=== PATIENT | female | born 1950 | race Caucasian/White ===

== ENCOUNTER 2017-11-16 19:50 | Inpatient (IN) | payer MEDICARE, MEDICAID ==
[~2017-11-16] VITALS: Ht 157.5 cm; Wt 69.2 kg
[~2017-11-16 19:50] MED LIST: ALPR-624 PO; ASPI-611 PO; LOSA100T13 PO; MORP30TA60 PO; NITR0.4T SL; NORCO10T PO; SIMV20TA5 PO
[2017-11-16 20:21] LABS: BASOPHILS % (AUTO) 0.2 % (0-1); EOSINOPHILS # (AUTO) 0.1 X10'3 (0-0.9); EOSINOPHILS % (AUTO) 0.6 % (0-6); HEMATOCRIT 49.6 % (35.0-45.0); LYMPHOCYTES # (AUTO) 1.9 X10'3 (1.1-4.8); LYMPHOCYTES % (AUTO) 12.8 % (21-51); MEAN CORPUSCULAR HEMOGLOBIN 31.4 PG (27.0-31.0); MEAN CORPUSCULAR HGB CONC 34.2 % (33.0-36.5); MEAN CORPUSCULAR VOLUME 92.1 FL (78-98); MONOCYTES # (AUTO) 0.8 X10'3 (0-0.9); MONOCYTES % (AUTO) 5.6 % (2-12); NEUTROPHILS # (AUTO) 11.8 X10'3 (1.8-7.7); NEUTROPHILS % (AUTO) 80.8 % (42-75); PLATELET COUNT 281 X10'3 (140-440); RED BLOOD COUNT 5.39 X10'6 (4.20-5.60); RED CELL DISTRIBUTION WIDTH 13.2 % (11.5-14.5); WHITE BLOOD COUNT 14.7 X10'3 (4.5-11.0)
[2017-11-16] MEDS ORDERED: normal saline 1000ml 1,000 ML IV ONE ×2 (20:30)
[2017-11-16 20:32] LABS: INR 1.1 INR; PARTIAL THROMBOPLASTIN TIME 26 SECONDS (22-32); PROTHROMBIN TIME 11.5 SECONDS (9.0-12.0)
[2017-11-16 20:36] LABS: ALANINE AMINOTRANSFERASE 34 U/L (12-78); ALBUMIN 3.6 G/DL (3.4-5.0); ALKALINE PHOSPHATASE 60 IU/L (46-116); ANION GAP 11 (8-16); ASPARTATE AMINO TRANSFERASE 30 U/L (10-37); BILIRUBIN,TOTAL 1.4 MG/DL (0.1-1.0); BLOOD UREA NITROGEN 30 MG/DL (7-18); BUN/CREATININE RATIO 31.6 (6.6-38.0); CALCIUM 8.8 MG/DL (8.5-10.1); CHLORIDE 105 MMOL/L (99-107); CREATININE 0.95 MG/DL (0.40-0.90); GLUCOSE 123 MG/DL (70-104); POTASSIUM 3.1 MMOL/L (3.5-5.1); SODIUM 143 MMOL/L (135-145); TOTAL CARBON DIOXIDE 27.2 MMOL/L (24-32); TOTAL PROTEIN 7.1 G/DL (6.4-8.2); eGFR 59 ML/MIN
[2017-11-16] MEDS ORDERED: HYDROmorphone inj. 0.5 MG/0.5 ML DISP.SYRIN IV PRN ×2 (22:25)
[2017-11-16] MEDS ORDERED: bisacodyl 10mg suppository rectal RC PRN (22:25)
[2017-11-16] MEDS ORDERED: acetaminophen 325mg tablet PO PRN (22:25)
[2017-11-16] MEDS ORDERED: metoclopramide 5 mg/ml inj IV PRN (22:25)
[2017-11-16] MEDS ORDERED: morphine 4 MG/ML inj SYRINge IV PRN (22:25)
[2017-11-16] MEDS ORDERED: potassium Cl 40MEQ/NS 500ml 500 ML IV PRN ×2 (22:25)
[2017-11-16] MEDS: K and/or MAG REPLACEMENT MC SCH (22:25)
[2017-11-16] MEDS ORDERED: HYDROcodone/acetaminophen 5mg/325mg tablet PO PRN (22:25)
[2017-11-16] MEDS ORDERED: acetaminophen 650mg rectal suppository RC PRN (22:25)
[2017-11-16] MEDS ORDERED: mag hydrox/Alum hydrox/simeth 30ml oral suspension PO PRN (22:25)
[2017-11-16] MEDS ORDERED: diphenhydrAMINE 25mg capsule PO PRN (22:25)
[2017-11-16] MEDS ORDERED: diphenhydrAMINE 50 mg/ml inj IV PRN (22:25)
[2017-11-16] MEDS ORDERED: magnesium hydroxide 30ml (MOM) UD suspension PO PRN (22:25)
[2017-11-16] MEDS ORDERED: potassium Cl 20 mEq SR tablet PO PRN (22:25)
[2017-11-16] MEDS ORDERED: metoprolol tartrate 1mg/ml inj IV PRN (22:40)
[2017-11-16] MEDS ORDERED: regadenoson 0.4mg/5ml syringe IV ONE (22:40)
[2017-11-16] MEDS ORDERED: CAFFEINE CITRATE 60 MG/3 ML injection vial IV PRN (22:40)
[2017-11-16] MEDS ORDERED: nitroGLYCERIN 0.4mg SUBLingual tab SL PRN (22:40)
[2017-11-16] MEDS: potassium Cl 20mEq in NS 1,000 ML IV SCH (23:07)
[2017-11-16] MEDS: pantoprazole 40 MG vial IV SCH (23:25)
[2017-11-16] MEDS: enoxaparin 60mg/0.6ml syringe SUBCUT SCH (23:29)
[2017-11-16 23:35] LABS: HEMOGLOBIN A1C 5.4 % (4.5-6.2)
[2017-11-16 23:41] LABS: MAGNESIUM 1.9 MG/DL (1.5-2.4)
[2017-11-17] VITALS (13 sets, daily range): BP systolic 125–160; BP diastolic 63–100
[2017-11-17] MEDS: potassium Cl 20 mEq SR tablet PO PRN ×4 (00:06→20:12)
[2017-11-17] MEDS: temazepam 15mg capsule PO PRN ×2 (00:06→20:15)
[2017-11-17 00:36] LABS: CLARITY,URINE Clear (Clear); COLOR,URINE Yellow (Yellow); GLUCOSE, URINE Negative (Neg); KETONES,URINE Trace mg/dl (Neg); LEUKOCYTE ESTERASE ,URINE Small (Neg); NITRITES, URINE Negative (Neg); OCCULT BLOOD,URINE Small (Neg); PH,URINE 5.5 (4.8-8.0); PROTEIN,URINE 300 mg/dl (Neg)
[2017-11-17 00:37] LABS: UA COLLECTION TYPE CLN CATCH MIDSTREAM
[2017-11-17 00:43] LABS: BACTERIA,URINE 2+ /HPF (Neg); MUCUS STRANDS FEW /LPF (Neg); SQUAMOUS EPITHELIAL CELL,UR FEW /LPF (FEW)
[2017-11-17 02:30] LABS: ALANINE AMINOTRANSFERASE 33 U/L (12-78); ALBUMIN 3.2 G/DL (3.4-5.0); ALKALINE PHOSPHATASE 55 IU/L (46-116); ANION GAP 5 (8-16); ASPARTATE AMINO TRANSFERASE 30 U/L (10-37); BILIRUBIN,TOTAL 0.9 MG/DL (0.1-1.0); BLOOD UREA NITROGEN 23 MG/DL (7-18); BUN/CREATININE RATIO 25.6 (6.6-38.0); CHLORIDE 109 MMOL/L (99-107); GLUCOSE 110 MG/DL (70-104); POTASSIUM 3.2 MMOL/L (3.5-5.1); SODIUM 144 MMOL/L (135-145); TOTAL CARBON DIOXIDE 29.8 MMOL/L (24-32); TOTAL PROTEIN 6.4 G/DL (6.4-8.2); eGFR 63 ML/MIN
[2017-11-17 02:33] LABS: BASOPHILS % (AUTO) 0.2 % (0-1); CHOL/HDL RATIO 3.5 (0.00-4.99); CHOLESTEROL 197 MG/DL (0-200); EOSINOPHILS # (AUTO) 0.1 X10'3 (0-0.9); EOSINOPHILS % (AUTO) 0.5 % (0-6); HDL CHOLESTEROL 56 MG/DL (35-60); HEMATOCRIT 45.9 % (35.0-45.0); HEMOGLOBIN 15.4 g/dl (12.0-16.0); LDL CHOLESTEROL 117 MG/DL (50-100); LYMPHOCYTES # (AUTO) 1.9 X10'3 (1.1-4.8); LYMPHOCYTES % (AUTO) 16.4 % (21-51); MEAN CORPUSCULAR HEMOGLOBIN 31.4 PG (27.0-31.0); MEAN CORPUSCULAR HGB CONC 33.4 % (33.0-36.5); MEAN CORPUSCULAR VOLUME 93.8 FL (78-98); MEAN PLATELET VOLUME 8.4 FL (7.4-10.4); MONOCYTES # (AUTO) 0.8 X10'3 (0-0.9); MONOCYTES % (AUTO) 6.7 % (2-12); NEUTROPHILS # (AUTO) 8.8 X10'3 (1.8-7.7); NEUTROPHILS % (AUTO) 76.2 % (42-75); PLATELET COUNT 244 X10'3 (140-440); RED BLOOD COUNT 4.89 X10'6 (4.20-5.60); TRIGLYCERIDES 145 MG/DL (20-135); WHITE BLOOD COUNT 11.6 X10'3 (4.5-11.0)
[2017-11-17] MEDS: nitroGLYCERIN 0.4mg/hour patch TD SCH (08:00)
[2017-11-17] MEDS: K and/or MAG REPLACEMENT MC SCH (08:00)
[2017-11-17] MEDS: enoxaparin 60mg/0.6ml syringe SUBCUT SCH ×2 (08:00→20:23)
[2017-11-17] MEDS: nitrofuran/nitrofuran macrocrysal 100 MG capsule PO SCH ×2 (08:42→17:19)
[2017-11-17] MEDS: pantoprazole 40 MG vial IV SCH (08:42)
[2017-11-17] MEDS: docusate sod 100mg capsule PO SCH ×2 (08:43→20:12)
[2017-11-17] MEDS: carVEDilol 3.125mg tablet PO SCH ×2 (08:43→20:12)
[2017-11-17] MEDS: aspirin 325mg tablet PO SCH (08:46)
[2017-11-17] MEDS: potassium Cl 20mEq in NS 1,000 ML IV SCH ×2 (08:52→18:24)
[2017-11-17] MEDS ORDERED: CAFFEINE CITRATE 60 MG/3 ML injection vial IV ONE (11:45)
[2017-11-17] MEDS ORDERED: regadenoson 0.4mg/5ml syringe IV ONE (11:46)
[2017-11-17] MEDS ORDERED: ondansetron/PF 4mg/2ml inj ONE (12:01)
[2017-11-17] MEDS: ondansetron/PF 4mg/2ml inj IV PRN (12:03)
[2017-11-17] MEDS: morphine 4 MG/ML inj SYRINge IV PRN (16:03)
[2017-11-17] MEDS: HYDROcodone/acetaminophen 10/325mg tab PO PRN ×2 (17:19→20:15)
[2017-11-18] MEDS: HYDROcodone/acetaminophen 10/325mg tab PO PRN ×4 (00:16→20:09)
[2017-11-18 03:00] VITALS: BP 152/82
[2017-11-18] MEDS: potassium Cl 20mEq in NS 1,000 ML IV SCH ×2 (05:06→14:32)
[2017-11-18 05:32] LABS: BASOPHILS % (AUTO) 0.3 % (0-1); EOSINOPHILS # (AUTO) 0.1 X10'3 (0-0.9); EOSINOPHILS % (AUTO) 0.6 % (0-6); HEMATOCRIT 39.4 % (35.0-45.0); HEMOGLOBIN 13.2 g/dl (12.0-16.0); LYMPHOCYTES # (AUTO) 2.8 X10'3 (1.1-4.8); LYMPHOCYTES % (AUTO) 29.7 % (21-51); MEAN CORPUSCULAR HEMOGLOBIN 31.1 PG (27.0-31.0); MEAN CORPUSCULAR HGB CONC 33.5 % (33.0-36.5); MEAN CORPUSCULAR VOLUME 92.8 FL (78-98); MEAN PLATELET VOLUME 8.1 FL (7.4-10.4); MONOCYTES # (AUTO) 0.7 X10'3 (0-0.9); MONOCYTES % (AUTO) 7.6 % (2-12); NEUTROPHILS # (AUTO) 5.7 X10'3 (1.8-7.7); NEUTROPHILS % (AUTO) 61.8 % (42-75); PLATELET COUNT 204 X10'3 (140-440); RED BLOOD COUNT 4.25 X10'6 (4.20-5.60); RED CELL DISTRIBUTION WIDTH 12.4 % (11.5-14.5); WHITE BLOOD COUNT 9.3 X10'3 (4.5-11.0)
[2017-11-18 05:48] LABS: ALANINE AMINOTRANSFERASE 29 U/L (12-78); ALBUMIN 2.8 G/DL (3.4-5.0); ALKALINE PHOSPHATASE 41 IU/L (46-116); ANION GAP 5 (8-16); ASPARTATE AMINO TRANSFERASE 21 U/L (10-37); BILIRUBIN,TOTAL 1.1 MG/DL (0.1-1.0); BLOOD UREA NITROGEN 13 MG/DL (7-18); BUN/CREATININE RATIO 15.9 (6.6-38.0); CHLORIDE 106 MMOL/L (99-107); CREATININE 0.82 MG/DL (0.40-0.90); GLUCOSE 106 MG/DL (70-104); SODIUM 140 MMOL/L (135-145); TOTAL CARBON DIOXIDE 29.3 MMOL/L (24-32); TOTAL PROTEIN 5.7 G/DL (6.4-8.2); eGFR 70 ML/MIN
[2017-11-18] MEDS: morphine 4 MG/ML inj SYRINge IV PRN ×2 (06:48→11:09)
[2017-11-18] MEDS: ondansetron/PF 4mg/2ml inj IV PRN ×2 (06:49→20:03)
[2017-11-18 07:00] VITALS: BP 147/83
[2017-11-18] MEDS ORDERED: pantoprazole 40mg Tablet.DR PO SCH (07:30)
[2017-11-18] MEDS: nitroGLYCERIN 0.4mg/hour patch TD SCH (08:00)
[2017-11-18] MEDS: K and/or MAG REPLACEMENT MC SCH (08:00)
[2017-11-18] MEDS: nitrofuran/nitrofuran macrocrysal 100 MG capsule PO SCH (08:38)
[2017-11-18] MEDS: carVEDilol 3.125mg tablet PO SCH (08:38)
[2017-11-18] MEDS: aspirin 325mg tablet PO SCH (08:38)
[2017-11-18] MEDS: docusate sod 100mg capsule PO SCH (08:38)
[2017-11-18] MEDS: enoxaparin 60mg/0.6ml syringe SUBCUT SCH (08:40)
[2017-11-18 11:00] VITALS: BP 132/79
[2017-11-18 15:00] VITALS: BP 127/72
[2017-11-18] MEDS ORDERED: COR3.125T PO (17:00)
[2017-11-18 19:00] VITALS: BP 138/89
== END 2017-11-18 20:21 | disposition home or self-care (01) | DRG 682 ==
LOC: ER 19:51 → ED HOLD 22:24 → PCU 3S 23:49
PROVIDERS: ADMIT Family Medicine; ATTEND Family Medicine
PROC: 4A02XM4 Measurement of Cardiac Total Activity, External Approach (ICD-10-PCS; principal; 2017-11-17)
PROC: 3E073KZ Introduction of Other Diagnostic Substance into Coronary Artery, Percutaneous Approach (ICD-10-PCS; 2017-11-17)
DX: N17.9 Acute kidney failure, unspecified (principal); R65.11 Systemic inflammatory response syndrome (SIRS) of non-infectious origin with acute organ dysfunction; E87.6 Hypokalemia; E86.0 Dehydration; K52.9 Noninfective gastroenteritis and colitis, unspecified; E78.5 Hyperlipidemia, unspecified; G89.4 Chronic pain syndrome; M19.90 Unspecified osteoarthritis, unspecified site; M54.9 Dorsalgia, unspecified; I10 Essential (primary) hypertension; Z90.710 Acquired absence of both cervix and uterus; Z79.899 Other long term (current) drug therapy; Z79.82 Long term (current) use of aspirin
CPT/HCPCS: 36415; 78452; 80053; 80061; 81001; 83036; 83605; 83735; 83880; 84100; 84145; 84484; 85025; 85610; 85730; 87040; 87070; 87088; 93005; 93017; 93306; 96360; 99285; A9500; C9113; J1650; J2270; J2405; J2765; J2785; J7030

== ENCOUNTER 2019-01-10 05:39 | Day surgery (SDC) | payer MEDICARE ==
[2019-01-02 10:42] LABS: BASOPHILS % (AUTO) 0.7 % (0-1); EOSINOPHILS # (AUTO) 0.1 X10'3 (0-0.9); EOSINOPHILS % (AUTO) 1.4 % (0-6); LYMPHOCYTES # (AUTO) 2.1 X10'3 (1.1-4.8); LYMPHOCYTES % (AUTO) 31.4 % (21-51); MEAN CORPUSCULAR HEMOGLOBIN 31.7 PG (27.0-31.0); MEAN CORPUSCULAR HGB CONC 33.8 g/dL (33.0-36.5); MEAN PLATELET VOLUME 7.5 FL (7.4-10.4); MONOCYTES # (AUTO) 0.4 X10'3 (0-0.9); MONOCYTES % (AUTO) 5.8 % (2-12); NEUTROPHILS % (AUTO) 60.7 % (42-75); PRE OP HEMATOCRIT 40.8 % (35.0-45.0); PRE OP HEMOGLOBIN 13.8 g/dL (12.0-16.0); PRE OP PLATELET COUNT 293 X10'3 (140-440); RED BLOOD COUNT 4.35 X10'6 (4.20-5.60); RED CELL DISTRIBUTION WIDTH 12.5 % (11.5-14.5)
[2019-01-02 10:48] LABS: PRE OP PROTIME 10.5 SECONDS (9.0-12.0)
[2019-01-02 10:49] LABS: ALBUMIN 3.4 G/DL (3.4-5.0); ALKALINE PHOSPHATASE 51 IU/L (46-116); BLOOD UREA NITROGEN 19 MG/DL (7-18); BUN/CREATININE RATIO 22.6 (6.6-38.0); CALCIUM 8.5 MG/DL (8.5-10.1); CHLORIDE 105 MMOL/L (99-107); CREATININE 0.84 MG/DL (0.40-0.90); PRE OP ALT 21 U/L (30-65); PRE OP ANION GAP 6 (8-16); PRE OP AST 17 U/L (10-37); PRE OP BILIRUB, TOTAL 0.4 MG/DL (0.0-1.0); PRE OP GLUCOSE 89 MG/DL (70-104); PRE OP SODIUM 141 MMOL/L (135-145); TOTAL CARBON DIOXIDE 30.2 MMOL/L (24-32); TOTAL PROTEIN 6.7 G/DL (6.4-8.2); eGFR 68 ML/MIN
[2019-01-02 10:50] LABS: PRE OP POTASSIUM 4.3 MMOL/L (3.4-5.1)
[~2019-01-10] VITALS: Ht 162.6 cm; Wt 77.0 kg
[2019-01-10] VITALS (17 sets, daily range): BP systolic 86–124; BP diastolic 31–77
[~2019-01-10 05:39] MED LIST changes: +ANTI1CAP5 PO; -ASPI-611 PO; -SIMV20TA5 PO; +cefazolin/dext.iso 2gm/100 ML IV ONE; +famotidine 20mg tablet PO ONE; +vancomycin inj 1,500 MG in normal saline 300ml IV soln IV ONE
[2019-01-10] MEDS ORDERED: tobramycin sulfate 1.2gm vial IJ ONE (05:40)
[2019-01-10] MEDS ORDERED: LIDOcaine 1% (10mg/ml) 2ml vial ONE (05:53)
[2019-01-10] MEDS: ringers solution, lacted 1,000 ML IV SCH ×2 (06:23→19:57)
[2019-01-10] MEDS ORDERED: BUPIVAcaine/PF 2.5 mg/ml (0.25%) 30ml vial ONE (07:02)
[2019-01-10] MEDS ORDERED: fentaNYL/PF 50MCG/1 ML 2ML syringe ONE (07:18)
[2019-01-10] MEDS ORDERED: midazolam 2 mg/2 ml injection ONE (07:18)
[2019-01-10] MEDS ORDERED: propofol inj 20 ML IV ONE (07:19)
[2019-01-10] MEDS ORDERED: ondansetron/PF 4mg/2ml inj ONE (07:19)
[2019-01-10] MEDS ORDERED: LIDOcaine 2% (20mg/ml) 5ml vial ONE (07:19)
[2019-01-10] MEDS ORDERED: dexamethasone sod phosphate 4mg/ml inj. ONE (07:19)
[2019-01-10] MEDS ORDERED: sevoflurane 250ml liquid IH ONE (07:20)
[2019-01-10] MEDS ORDERED: ringers solution, lacted 1,000 ML IV SCH (08:12)
[2019-01-10] MEDS ORDERED: ondansetron/PF 4mg/2ml inj IV PRN ×2 (08:15→11:00)
[2019-01-10] MEDS ORDERED: hydrALAZINE 20mg/ml inj. IV PRN (08:15)
[2019-01-10] MEDS ORDERED: enalaprilat dihydrate 2.5mg/2ml vial IV PRN (08:15)
[2019-01-10] MEDS ORDERED: HYDROmorphone inj. 0.5 MG/0.5 ML DISP.SYRIN IV PRN ×2 (08:15)
[2019-01-10] MEDS ORDERED: morphine 4 MG/ML inj SYRINge IV PRN ×2 (08:15)
[2019-01-10] MEDS ORDERED: ePHEDrine 50MG/ML INJ. ONE (08:25)
[2019-01-10] MEDS ORDERED: acetaminophen 1,000mg/100ml IV 100 ML IV ONE (09:49)
[2019-01-10] MEDS ORDERED: morphine 10mg/ml inj. ONE (10:10)
--- NOTE | 2019-01-10 10:37 | NUR ---
Received from OR via [facility]THO BED WITH [facility] , accompanied by Anesthesiologist JOAQUINA and report given by Anesthesiolgist. PATIENT WITH 5/10 SHOULDER AND KNEE PAIN. STATES THAT SHE CAN TOLERATE A 6. PATIENT HAS CHRONIC PAIN. SCDS DONNED. 18G PIV IN LEFT UE RUNNING LR AT 100. MOVES FINGERS AND HAS +CAP REFILL AND RADIAL PULSE. VSS AT THIS TIME. SHOULDER WRAP AND ICE PACK PRESENT. Addendum: 01/10/19 at 1046 by Aurelio Rome RN, RN Amended: Links added.
[2019-01-10] MEDS ORDERED: nitroGLYCERIN 0.4mg SUBLingual tab SL PRN (10:55)
[2019-01-10] MEDS ORDERED: diphenhydrAMINE 25mg capsule PO PRN ×2 (11:00)
[2019-01-10] MEDS ORDERED: bisacodyl 10mg suppository rectal RC PRN (11:00)
[2019-01-10] MEDS ORDERED: magnesium hydroxide 30ml (MOM) UD suspension PO PRN (11:00)
[2019-01-10] MEDS ORDERED: acetaminophen 325mg tablet PO PRN (11:00)
[2019-01-10] MEDS ORDERED: ESTR1TAB28 PO (11:12)
--- NOTE | 2019-01-10 11:37 | NUR ---
ALL CRITERIA FOR TRANSFER TO THE FLOOR HAS BEEN ACHIEVED. VSS. BED LOW, CALL LIGHT AND VS. SET IN PLACE. RN PRESENT TO ACCEPT CARE. PATIENT RESTING COMFORTABLY IN BED. BELONGINGS SENT WITH PATIENT. DRESSINGS AVELINO. RN PRESENT TO ACCEPT CARE OF THIS PATIENT. DRESSINGS AVELINO. Addendum: 01/10/19 at 1146 by Aurelio Rome RN, RN Amended: Links added.
--- NOTE | 2019-01-10 12:00 | NUR ---
I have received patient report from Aurelio EDWARDS
[2019-01-10] MEDS: morphine ER 30mg tablet PO SCH ×2 (12:45→21:24)
[2019-01-10] MEDS: potassium Cl 20mEq in NS 1,000 ML IV SCH (12:45)
[2019-01-10] MEDS: HYDROcodone/acetaminophen 10/325mg tab PO SCH ×2 (13:55→20:05)
[2019-01-10] MEDS: ketorolac tromethamine 15mg/ml inj. IV SCH ×2 (13:55→20:04)
[2019-01-10] MEDS: ceFAZolin 1GM/D5W- ADD-VANTAGE 50 ML IV SCH (16:30)
[2019-01-10] MEDS: ALPRAZolam 0.5mg tablet PO PRN (18:05)
--- NOTE | 2019-01-10 18:43 | NUR ---
I have given patient report Valery EDWARDS
[2019-01-10] MEDS ORDERED: vancomycin/NS 1 GM ADD-VANTAGE 250 ML IV SCH (20:00)
[2019-01-10] MEDS ORDERED: sennosides 8.6mg tablet PO SCH (21:00)
[2019-01-11] MEDS: ceFAZolin 1GM/D5W- ADD-VANTAGE 50 ML IV SCH (00:53)
[2019-01-11] MEDS: potassium Cl 20mEq in NS 1,000 ML IV SCH (00:54)
[2019-01-11 02:00] VITALS: BP 104/57
[2019-01-11] MEDS: HYDROcodone/acetaminophen 10/325mg tab PO SCH ×2 (02:19→07:58)
[2019-01-11] MEDS: ketorolac tromethamine 15mg/ml inj. IV SCH ×2 (02:20→07:58)
[2019-01-11 06:10] VITALS: BP 115/55
--- NOTE | 2019-01-11 06:28 | NUR ---
Problems reprioritized. Patient report given, questions answered & plan of care reviewed with Dinora EDWARDS. Addendum: 01/11/19 at 0629 by Valery Saldana RN Amended: Links added.
--- NOTE | 2019-01-11 06:31 | NUR ---
I have received patient report from Valery EDWARDS
[2019-01-11] MEDS: morphine ER 30mg tablet PO SCH ×2 (07:58→13:26)
[2019-01-11] MEDS ORDERED: losartan 25mg tablet PO SCH (08:00)
[2019-01-11] MEDS ORDERED: beta-carotene(A) w/C & E + minerals tab PO SCH (08:00)
[2019-01-11] MEDS ORDERED: estradiol 1mg tablet PO SCH (08:00)
[2019-01-11 10:00] VITALS: BP 163/63
[2019-01-11] MEDS ORDERED: HYDROcodone/acetaminophen 10/325mg tab PO PRN (11:25)
[2019-01-11] MEDS: HYDROcodone/acetaminophen 10/325mg tab PO PRN ×2 (11:35→15:17)
[2019-01-11] MEDS: ALPRAZolam 0.5mg tablet PO PRN (13:26)
[2019-01-11 14:00] VITALS: BP 147/77
== END 2019-01-11 17:27 | disposition home or self-care (01) ==
LOC: PAS 05:39 → ORTHO 4S 11:01 → PAS 01-11 17:27
PROVIDERS: ATTEND Orthopaedic Surgery
DX: S46.011A Strain of muscle(s) and tendon(s) of the rotator cuff of right shoulder, initial encounter (principal); M19.011 Primary osteoarthritis, right shoulder; M75.21 Bicipital tendinitis, right shoulder; I10 Essential (primary) hypertension; I25.2 Old myocardial infarction; F41.9 Anxiety disorder, unspecified; G89.29 Other chronic pain; G89.18 Other acute postprocedural pain; Z91.09 Other allergy status, other than to drugs and biological substances; Z79.899 Other long term (current) drug therapy; Z72.89 Other problems related to lifestyle; Z87.891 Personal history of nicotine dependence; Z79.01 Long term (current) use of anticoagulants; X58.XXXA Exposure to other specified factors, initial encounter; Y93.89 Activity, other specified; Y92.89 Other specified places as the place of occurrence of the external cause; Y99.8 Other external cause status
CPT/HCPCS: 23120; 23130; 23412; 23430; 36415; 64415; 80053; 82948; 85025; 85610; 85730; 93005; 97110; 97116; 97161; 97530; A6223; C1713; J0131; J0690; J1100; J1170; J1885; J2001; J2250; J2270; J2405; J2704; J3010; J3370; J3480; J3490; J7120; A4215; A4565; A4618; A6253; A6449; A7000; G0378; J3260